=== PATIENT | female | born 2005 | race Two or more races ===

== ENCOUNTER 2024-11-18 07:21 | Day surgery (SDC) | payer OTHER ==
[2024-11-11 13:27] VITALS: BP 109/74
[2024-11-11 14:02] LABS: HEMATOCRIT 40.8 % (36.0-45.00); HEMOGLOBIN 13.8 g/dL (12.0-15.00); MEAN CELL VOLUME 96.7 fL (80.00-100.00); MEAN CORPUSCULAR HEMOGLOBIN 32.8 pg (27.00-32.0); MEAN CORPUSCULAR HGB CONC 33.9 g/dl (32.0-36.0); PLATELET COUNT 257 K/uL (150-450); RED BLOOD COUNT 4.22 M/uL (4.00-6.00)
[2024-11-11 14:04] LABS: URINE APPEARANCE Clear; URINE BILIRRUBIN Negative (NEGATIVE); URINE BLOOD Negative; URINE COLOR Yellow; URINE GLUCOSE Negative (NEGATIVE); URINE KETONE Negative (NEGATIVE); URINE LEUKOCYTE Negative; URINE NITRATE Negative; URINE PROTEIN Negative (NEGATIVE); URINE UROBILINOGEN 0.2 E.U./dl
[2024-11-11 14:09] LABS: URINE BACTERIA 1163.8 uL (0.0-1933); URINE EPITHELIAL CELLS 18.6 uL (0.0-38.8); URINE WBC 24.3 uL (0.0-23.2)
[2024-11-11 14:28] LABS: INR 1.15; PARTIAL THROMBOPLASTIN TIME 30.2 SECONDS (22.0-34.0); PROTHROMBIN TIME 12.4 SECONDS (9.0-11.5)
[2024-11-11 14:39] LABS: CALCIUM 9.2 mg/dL (8.5-10.1); CREATININE SERUM 0.43 mg/dL (0.55-1.02); GFR 187.2; POTASSIUM 3.95 mEq/L (3.5-5.1)
[~2024-11-18] VITALS: Ht 152.4 cm; Wt 51.3 kg
[2024-11-18] MEDS ORDERED: PANTOPRAZOLE SODIUM 40 MG/VIAL VIAL ONE (08:25)
[2024-11-18] MEDS ORDERED: DEXAMETHASONE SODIUM PHOSPHATE 4 MG/ML VIAL ONE (09:32)
[2024-11-18] MEDS ORDERED: DEXAMETHASONE SODIUM PHOSPHATE 4 MG/ML VIAL IV ONE (10:00)
[2024-11-18] MEDS ORDERED: PANTOPRAZOLE SODIUM 40 MG/VIAL VIAL IV ONE (10:00)
[2024-11-18] MEDS ORDERED: CEFAZOLIN SODIUM 1,000 MG VIAL IV ONE (10:00)
[2024-11-18] MEDS ORDERED: MORPHINE SULFATE 4 MG/ML VIAL IV ONE (11:10)
== END 2024-11-18 14:15 | disposition home or self-care (01) ==
LOC: CIR.AMB 07:21 → ADM 10:45 → CIR.AMB 10:45
PROVIDERS: ATTEND Otolaryngology
DX: J35.01 Chronic tonsillitis (principal)

== ENCOUNTER 2024-11-19 22:22 | Emergency (ER) | payer OTHER ==
[~2024-11-19] VITALS: Ht 152.4 cm; Wt 51.3 kg
[2024-11-19] MEDS ORDERED: METHYLPREDNISOLONE SOD SUCC 40 MG VIAL IM SCH (22:45)
[2024-11-19] MEDS ORDERED: IPRATROPIUM/ALBUTEROL SULFATE 3 ML AMPUL.NEB IH SCH (22:45)
[2024-11-19] MEDS ORDERED: 0.9 % SODIUM CHLORIDE 1,000 ML IV STA (23:04)
[2024-11-19] MEDS ORDERED: MORPHINE SULFATE 2 MG/ML SYRINGE IV STA (23:10)
[2024-11-19] MEDS ORDERED: METHYLPREDNISOLONE SOD SUCC 40 MG VIAL ONE (23:24)
[2024-11-20 00:07] LABS: HEMATOCRIT 45.1 % (36.0-45.00); HEMOGLOBIN 15.1 g/dL (12.0-15.00); MEAN CELL VOLUME 96.8 fL (80.00-100.00); MEAN CORPUSCULAR HEMOGLOBIN 32.4 pg (27.00-32.0); MEAN CORPUSCULAR HGB CONC 33.5 g/dl (32.0-36.0); PLATELET COUNT 266 K/uL (150-450); RED BLOOD COUNT 4.66 M/uL (4.00-6.00); RED CELL DISTRIBUTION WIDTH 12.9 % (11.5-14.5)
[2024-11-20 00:29] LABS: ALBUMIN 4.5 gm/dL (3.4-5.0); BILIRUBIN TOTAL 0.98 mg/dL (0.3-1.2); CALCIUM 10.1 mg/dL (8.5-10.1); CREATININE SERUM 0.61 mg/dL (0.55-1.02); GFR 125.04; GLOBULINA 3.8 G/DL (2.4-3.5); POTASSIUM 4.08 mEq/L (3.5-5.1); TOTAL PROTEIN 8.3 gm/dL (6.4-8.2)
[2024-11-20] MEDS ORDERED: ALBUTEROL SULFATE 3 ML/2.5 MG AMPUL.NEB IH STA (01:12)
[2024-11-20] MEDS ORDERED: ALBUTEROL SULFATE 3 ML/2.5 MG AMPUL.NEB IH ONE (01:18)
== END 2024-11-20 06:20 ==
LOC: EMR PED 22:23 → ER 22:23 → EMR PED 22:43
DX: G89.18 Other acute postprocedural pain (principal)

== ENCOUNTER 2024-11-27 17:51 | Inpatient (IN) | payer OTHER ==
[~2024-11-27] VITALS: Ht 152.4 cm; Wt 53.5 kg
--- NOTE | 2024-11-27 18:16 | NUR ---
PTE ALERTA Y ORIENTADA X3. REFIERE NAE SIDO OPERADA PARA REMOCION DE AMIGADALAS HACE 8 JACOBS POR FOX, KENNY REFIERE SANGRADA EN AREA AFECTADA DESDE HACE 30MIN
[2024-11-27] MEDS ORDERED: DEXTROSE 5 %-0.45 % SOD CHLORD 1,000 ML IV STA (18:44)
[2024-11-27] MEDS ORDERED: MORPHINE SULFATE 4 MG/ML VIAL IV PRN (19:15)
[2024-11-27 19:22] LABS: HEMATOCRIT 41.5 % (36.0-45.00); HEMOGLOBIN 14.4 g/dL (12.0-15.00); MEAN CELL VOLUME 95.6 fL (80.00-100.00); MEAN CORPUSCULAR HEMOGLOBIN 33.1 pg (27.00-32.0); MEAN CORPUSCULAR HGB CONC 34.6 g/dl (32.0-36.0); PLATELET COUNT 259 K/uL (150-450); RED BLOOD COUNT 4.34 M/uL (4.00-6.00); RED CELL DISTRIBUTION WIDTH 12.9 % (11.5-14.5)
--- NOTE | 2024-11-27 19:42 | NUR ---
SE ORIENTA SOBRE TRATAMIENTO MEDICO. SE CANALZIA VENA Y SE BRENT MUESTRAS DE LAB
[2024-11-27 20:10] LABS: INR 1.22; PROTHROMBIN TIME 13.1 SECONDS (9.0-11.5)
[2024-11-27 20:19] LABS: ALBUMIN 4.1 gm/dL (3.4-5.0); BILIRUBIN TOTAL 0.29 mg/dL (0.3-1.2); CREATININE SERUM 0.55 mg/dL (0.55-1.02); GFR 140.91; GLOBULINA 3.1 G/DL (2.4-3.5); POTASSIUM 3.38 mEq/L (3.5-5.1); TOTAL PROTEIN 7.2 gm/dL (6.4-8.2)
[2024-11-27] MEDS ORDERED: KETOROLAC TROMETHAMINE 30 MG VIAL IM STA (21:06)
[2024-11-27] MEDS ORDERED: KETOROLAC TROMETHAMINE 30 MG VIAL ONE (21:06)
[2024-11-27 21:10] LABS: COVID-19 AG NEGATIVE (NEGATIVE)
[2024-11-27 22:55] VITALS: BP 118/86
[2024-11-28 01:36] VITALS: BP 99/65; O2SAT 99
[2024-11-28 06:48] LABS: RH POSITIVE
[2024-11-28 08:20] VITALS: BP 99/60; O2SAT 100
[2024-11-28] MEDS ORDERED: POLYETHYLENE GLYCOL 3350 17 GM BLIST.PACK PO SCH (09:00)
[2024-11-28] MEDS ORDERED: POLYETHYLENE GLYCOL 3350 17 GM BLIST.PACK PO ONE (09:25)
[2024-11-28 12:54] LABS: HEMATOCRIT 39.1 % (36.0-45.00); HEMOGLOBIN 13.6 g/dL (12.0-15.00); MEAN CELL VOLUME 94.8 fL (80.00-100.00); MEAN CORPUSCULAR HEMOGLOBIN 32.9 pg (27.00-32.0); MEAN CORPUSCULAR HGB CONC 34.7 g/dl (32.0-36.0); PLATELET COUNT 232 K/uL (150-450); RED BLOOD COUNT 4.13 M/uL (4.00-6.00); RED CELL DISTRIBUTION WIDTH 12.6 % (11.5-14.5)
[2024-11-28 14:28] VITALS: BP 103/64; O2SAT 99
[2024-11-28 15:50] VITALS: BP 103/64; O2SAT 99
[2024-11-28 16:30] VITALS: BP 95/58
== END 2024-11-28 16:36 | disposition home or self-care (01) | DRG 921 ==
LOC: EMR PED 21:13 → PED 22:32
PROVIDERS: Emergency Medicine Pediatric Emergency Medicine; Otolaryngology; ADMIT Emergency Medicine; ATTEND Emergency Medicine
DX: E89.810 Postprocedural hemorrhage of an endocrine system organ or structure following an endocrine system procedure (principal)